=== PATIENT | female | born 1980 | race Caucasian/White ===

== ENCOUNTER 2021-09-06 19:21 | Emergency (ER) | payer OTHER ==
[~2021-09-06] VITALS: Ht 166.4 cm; Wt 102.3 kg
--- NOTE | 2021-09-06 19:49 | PHYS DOC ---
Adult General Chief Complaint Chief Complaint: ABDOMINAL PAIN HPI HPI Patient is a 41-year-old female patient with no significant medical history presenting today complaining of a burning intermittent 8 out of 10 right upper quadrant abdominal pain radiating to her back, symptoms began yesterday. Patien t denies any vomiting but states she was nauseated today. Denies anything specific and exacerbating or relieving her symptoms. Denies any chance she is . Denies any diarrhea. (VALORIE ROMANO [employer]OR MECHANIC) Review of Systems Review of Systems Constitutional: Denies fever or chills [] Eyes: Denies change in visual acuity, redness, or eye pain [] HENT: Denies nasal congestion or sore throat [] Respiratory: Denies cough or shortness of breath [] Cardiovascular: No additional information not addressed in HPI [] GI: Reports right upper quadrant abdominal pain with nausea, denies vomiting, bl oody stools or diarrhea [] : Denies dysuria or hematuria [] Musculoskeletal: Denies back pain or joint pain [] Integument: Denies rash or skin lesions [] Neurologic: Denies headache, focal weakness or sensory changes [] All other systems were reviewed and found to be within normal limits, except as documented in this note. (VALORIE ROMANO [employer]OR MECH[employer]IC) Physical Exam Physical Exam Constitutional: Well developed, well nourished, no acute distress, non-toxic appearance. [] HENT: Normocephalic, atraumatic, bilateral external ears normal, oropharynx moist, no oral exudates, nose normal. [] Eyes: PERRLA, EOMI, conjunctiva normal, no discharge. [] Neck: Normal range of motion, no tenderness, supple, no stridor. [] Cardiovascular:Heart rate regular rhythm, no murmur [] Lungs & Thorax: Bilateral breath sounds clear to auscultation [] Abdomen: Bowel sounds normal, soft, moderate tenderness to the right upper quadrant with positive Alfonso sign, no right lower quadrant tenderness, negative psoas sign, negative obturator sign, patient is guarding the right upper quadrant, no masses, no pulsatile masses. [] Skin: Warm, dry, no erythema, no rash. [] Back: No tenderness, no CVA tenderness. [] Extremities: No tenderness, no cyanosis, no clubbing, ROM intact, no edema. [] Neurologic: Alert and oriented X 3, normal motor function, normal sensory function, no focal deficits noted. [] Psychologic: Affect normal, judgement normal, mood normal. [] (VALORIE ROMANO APRN) EKG EKG [] (VALORIE ROMANO APRN) Radiology/Procedures Radiology/Procedures [] (VALORIE ROMANO APRN) Radiology/[place] [address] IMAGING REPORT Signed PATIENT: PERRY MCCOY DACCOUNT: [id number] : 1980 LOCATION: ER AGE: 41 SEX: F EXAM STATUS: REG ER ORD. PHYSICIAN: VALORIE ROMANO APRN REASON: OMNI 300, 75 ML IV.RUQ pain PROCEDURE: CT ABD PELV W/ IV CONTRST ONLY EXAMINATION: CT ABDOMEN+PELVIS W CLINICAL HISTORY: Right upper quadrant pain TECHNIQUE: CT of the abdomen and pelvis was performed using standard technique, scanning from just above the dome of the diaphragm to the symphysis pubis following administration of intravenous contrast. CT Dose Reduction Employed: One or more of the following individualized dose reduction techniques were utilized for this examination: 1. Automated exposure control 2. Adjustment of the mA and/or kV according to patient size 3. Use of iterative reconstruction technique. COMPARISON: None FINDINGS: Minimal dependent bibasilar subsegmental atelectasis. Liver, gallbladder, pancreas, spleen, adrenal glands, and kidneys unremarkable. Mildly filled urinary bladder. Uterus and ovaries unremarkable on limited evaluation. No bowel dilation or definite wall thickening. Appendix within normal limits. Nondistended stomach suboptimally evaluated. Focal inflammatory changes with mesenteric fat stranding in the midline to right paramedian upper abdomen, directly beneath the anterior abdominal wall, nonspecific. No wall thickening in the adjacent colon or small bowel bowel to suggest enteritis/colitis. No abdominal aortic or iliac artery aneurysm. Mild thoracolumbar degenerative changes. IMPRESSION: Nonspecific focal inflammatory changes just beneath the anterior abdominal wall in the upper abdomen as described. Electronically signed by: Thang Che DO (09/06/2021 10:19 PM) [facility] DICTATED AND SIGNED BY: THANG CHE DO DATE: 09/06/212211 CC: MACY LOPEZ MD; VALORIE ROMANO APRN; PCP,NO ~MTH0 0 (MACY LOPEZ MD) Heart Score C/O Chest Pain: N/A Risk Factors: Risk Factors: DM, Current or recent (<one month) smoker, HTN, HLP, family history of CAD, obesity. Risk Scores: Risk Factors: DM, Current or recent (<one month) smoker, HTN, HLP, family history of CAD, obesity. (VALORIE ROMANO APRN) C/O Chest Pain: No (MACY LOPEZ MD) Course & Med Decision Making Course & Med Decision Making Pertinent Labs and Imaging studies reviewed. (See chart for details) This is a 41-year-old female patient presenting to the ED today with right upper quadrant abdominal pain, symptoms began yesterday. CBC with a WBC of 11.4, CMP with no acute findings, UA negative for infection, negative urine hCG. [address] Lopez pending CT of the abdomen and pelvis (VALORIE ROMANO APRN) Dragon Disclaimer Dragon Disclaimer This electronic medical record was generated, in whole or in part, using a voice recognition dictation system. (VALORIE ROMANO APRN) Departure Departure: Impression: Primary Impression: Mesenteric panniculitis Disposition: HOME / SELF CARE / HOMELESS Condition: STABLE Referrals: PCP,NO (PCP) Patient Instructions: Constipation, Adult Scripts Amoxicillin/Potassium Clav (AUGMENTIN 875-125 TABLET) 1 Each Tablet 1 TAB PO BID for antibiotic for 7 Days, #14 TAB 0 Refills Prov: MACY LOPEZ MD 09/06/21 Ibuprofen (IBUPROFEN) 800 Mg Tablet 1 TAB PO TID for anti-inflammatory, #30 TAB Prov: MACY LOPEZ MD 09/06/21 VALORIE ROMANO APRN Sep 06, 2021 19:49 MACY LOPEZ MD Sep 06, 2021 22:39
[2021-09-06] MEDS ORDERED: ONDANSETRON PF 4 MG/2 ML VIAL. IVP ONE (20:00)
[2021-09-06] MEDS ORDERED: IV NORMAL SALINE 1,000ML 1,000 ML IV ONE (20:00)
[2021-09-06] MEDS ORDERED: IOHEXOL 300 MG/ML 75 ML VIAL. IV ONE (20:00)
[2021-09-06] MEDS ORDERED: FAMOTIDINE 20 MG/2 ML VIAL IVP ONE (20:00)
[2021-09-06 20:10] LABS: BASO # 0.1 x10^3/uL (0.0-0.2); BASO % 1 % (0-3); EOS # 0.1 x10^3/uL (0.0-0.7); EOS % 1 % (0-3); HEMATOCRIT 38.6 % (36.0-47.0); HEMOGLOBIN 13.1 g/dL (12.0-15.5); LYMPH # 3.2 x10^3/uL (1.0-4.8); LYMPH % 28 % (24-48); MEAN CORPUSCULAR HEMOGLOBIN 30 pg (25-35); MEAN CORPUSCULAR HGB CONC 34 g/dL (31-37); MEAN CORPUSCULAR VOLUME 88 fL (79-100); MONO # 0.8 x10^3/uL (0.0-1.1); MONO % 7 % (0-9); NEUT # 7.2 x10^3uL (1.8-7.7); NEUT % 63 % (31-73); PLATELET COUNT 293 x10^3/uL (140-400); RED BLOOD COUNT 4.37 x10^6/uL (3.50-5.40); WHITE BLOOD COUNT 11.4 x10^3/uL (4.0-11.0)
[2021-09-06 20:18] LABS: CALCIUM 8.8 mg/dL (8.5-10.1); CREATININE 0.8 mg/dL (0.6-1.0); GFR 78.7; POTASSIUM 3.8 mmol/L (3.5-5.1)
[2021-09-06 20:23] LABS: ALBUMIN 3.3 g/dL (3.4-5.0); ALBUMIN/GLOBULIN RATIO 0.9 (1.0-1.7); TOTAL BILIRUBIN 0.4 mg/dL (0.2-1.0); TOTAL PROTEIN 7.1 g/dL (6.4-8.2)
[2021-09-06 20:33] LABS: BILIRUBIN,URINE NEG (NEG); CLARITY,URINE CLEAR; COLOR,URINE YELLOW; GLUCOSE,URINE NEG (NEG); NITRITE,URINE NEG (NEG); RBC,URINE OCC /HPF (0-2); UROBILINOGEN,URINE 0.2 mg/dL (0.2 mg/dL)
[2021-09-06 20:34] LABS: BACTERIA,URINE MOD /HPF (0-FEW); SQUAMOUS EPITHELIAL CELL,UR MOD /LPF
--- NOTE | 2021-09-06 22:21 | RAD ---
EXAMINATION: CT ABDOMEN+PELVIS W CLINICAL HISTORY: Right upper quadrant pain TECHNIQUE: CT of the abdomen and pelvis was performed using standard technique, scanning from just ab ove the dome of the diaphragm to the symphysis pubis following administration of intravenous contrast . CT Dose Reduction Employed: One or more of the following individualized dose reduction techniques wer e utilized for this examination: 1. Automated exposure control 2. Adjustment of the mA and/or kV ac cording to patient size 3. Use of iterative reconstruction technique. COMPARISON: None FINDINGS: Minimal dependent bibasilar subsegmental atelectasis. Liver, gallbladder, pancreas, spleen, adrenal glands, and kidneys unremarkable. Mildly filled urinary bladder. Uterus and ovaries unremarkable on limited evaluation. No bowel dilation or definite wall thickening. Appendix within normal limits. Nondistended stomach sethi boptimally evaluated. Focal inflammatory changes with mesenteric fat stranding in the midline to right paramedian upper abd omen, directly beneath the anterior abdominal wall, nonspecific. No wall thickening in the adjacent c olon or small bowel bowel to suggest enteritis/colitis. No abdominal aortic or iliac artery aneurysm. Mild thoracolumbar degenerative changes. IMPRESSION: Nonspecific focal inflammatory changes just beneath the anterior abdominal wall in the upper abdomen as described. Electronically signed by: Thang Morales DO (09/06/2021 10:19 PM) [facility]
[2021-09-06] MEDS ORDERED: AMOX1TAB61 PO (22:38)
[2021-09-06] MEDS ORDERED: IBUP800T19 PO (22:38)
[2021-09-06] MEDS ORDERED: KETOROLAC 30 MG/ML VIAL. ONE (22:43)
[2021-09-06] MEDS ORDERED: AMOXICILLIN/K CLAV 875/125MG TABLET. PO ONE (22:45)
[2021-09-06] MEDS ORDERED: KETOROLAC 30 MG/ML VIAL. IVP ONE (22:45)
[2021-09-06 22:47] VITALS: BP 132/86
== END 2021-09-06 22:55 | disposition home or self-care (01) ==
LOC: ER 19:21
DX: K65.4 Sclerosing mesenteritis (principal)
CPT/HCPCS: 36415; 74177; 80053; 81001; 81025; 83690; 85025; 87086; 96361; 96374; 96375; 99285; J1885; J2405; J3010; J3490; J7030; Q9967